=== PATIENT | female | born 1990 | race Hispanic/Latino ===

== ENCOUNTER 2024-04-14 13:28 | Emergency (ER) | payer SELFPAY ==
[~2024-04-14] VITALS: Ht 170.2 cm; Wt 111.1 kg
[2024-04-14 14:37] VITALS: BP 170/65; PULSE 80; RESP 16; TEMP 97.9; O2SAT 98
[2024-04-14] MEDS: ketOROlac 60 MG VIAL (30MG/ML) IM ONE (14:44)
[2024-04-14] MEDS ORDERED: METH4TAB3 PO (14:44)
[2024-04-14] MEDS ORDERED: IBUP-2077 PO (14:44)
[2024-04-14] MEDS ORDERED: CYCL10TA16 PO (14:44)
[2024-04-14] MEDS: CYCLOBENZAPRINE HCL 10 MG TABLET PO ONE (14:44)
[2024-04-14] MEDS: dexaMETHasone SOD PHOSPHATE 4 MG/ML 1ML VIAL IM ONE (14:45)
== END 2024-04-14 15:33 | disposition home or self-care (01) ==
LOC: EDH 13:28
DX: S70.01XA Contusion of right hip, initial encounter (principal); M54.50 Low back pain, unspecified; G89.29 Other chronic pain; R10.2 Pelvic and perineal pain; J45.909 Unspecified asthma, uncomplicated; Z90.49 Acquired absence of other specified parts of digestive tract; Z98.890 Other specified postprocedural states; W01.0XXA Fall on same level from slipping, tripping and stumbling without subsequent striking against object, initial encounter; Y93.89 Activity, other specified; Y92.89 Other specified places as the place of occurrence of the external cause; Y99.8 Other external cause status
CPT/HCPCS: 99284; 72170; 96372 ×2; J1100; J1885